=== PATIENT | male | born 1955 | race Caucasian/White ===

== ENCOUNTER 2022-02-11 10:42 | Day surgery (SDC) | payer OTHER ==
[~2022-02-11] VITALS: Ht 177.8 cm; Wt 86.8 kg
[~2022-02-11 10:42] MED LIST: CELE200 PO; FORTAMET; IBUP200; LEVE500 PO; LISI20 PO; PIOG45 PO; PRAV20 PO; TRAM50 PO
--- NOTE | 2022-02-11 11:28 | NUR ---
Ambulatory in Day Surgery History, Chart, Medications and Allergies reviewed before start of procedure. Lungs clear T/O to Auscultation. Patient confirms NPO status and agrees with scheduled surgery. Pre-Op teaching done. Pt verbalizes understanding. Patient States Post-Procedure ride home has been arranged.
--- NOTE | 2022-02-11 12:29 | NUR ---
02/11/22 1229 PERNELL SAUCEDO History, Chart, Medications and Allergies reviewed before start of procedure. Patient confirms NPO status and agrees with scheduled surgery. 3-LEAD EKG REVIEWED WITH PHYSICIAN PRIOR TO START OF PROCEDURE. MONITOR INTACT WITH CONTINUOUS PULSE OXIMETRY AND INTERMITTENT BP. PATIENT DETERMINED TO BE ASA APPROPRIATE FOR PROPOFOL SEDATION PRIOR TO START OF PROCEDURE BY DR. GREGORY. O2 VIA NASAL CANNULA.
--- NOTE | 2022-02-11 13:48 | NUR ---
1320- PT AWAKE, READY FOR DC HOME, DENIES NEED FOR ANYTHING TO DRINK RIGHT NOW. Discharge instructions reviewed with patient. Patient verbalizes understanding. Copy given to patient to take home. Discharged via wheelchair to private car for ride home.
== END 2022-02-11 13:30 | disposition home or self-care (01) ==
LOC: ORSCMMR 10:42 → ORD 12:30 → ORSCMMR 13:30
PROVIDERS: Student in an Organized Health Care Education/Training Program
PROC: 0DBH8ZX Excision of Cecum, Via Natural or Artificial Opening Endoscopic, Diagnostic (ICD-10-PCS; principal; 2022-02-11 12:30)
DX: D64.9 Anemia, unspecified (principal); D12.0 Benign neoplasm of cecum; K62.89 Other specified diseases of anus and rectum; K64.4 Residual hemorrhoidal skin tags; E11.9 Type 2 diabetes mellitus without complications; E78.5 Hyperlipidemia, unspecified; G40.909 Epilepsy, unspecified, not intractable, without status epilepticus; Z79.84 Long term (current) use of oral hypoglycemic drugs; Z79.899 Other long term (current) drug therapy
CPT/HCPCS: 82947; 88305; J2704; J7120

== ENCOUNTER 2025-10-05 15:08 | Emergency (ER) | payer OTHER ==
[~2025-10-05] VITALS: Ht 180.3 cm; Wt 86.2 kg
[2025-10-05 15:20] VITALS: BP 190/101
[2025-10-05] MEDS ORDERED: NS 1,000 ML IV SCH (17:05)
[2025-10-05] MEDS ORDERED: Morphine Sulfate 4 MG/1 ML Injection IV ONE (17:05)
[2025-10-05] MEDS ORDERED: Ondansetron HCl 2 MG / ML 2ML Vial IV ONE (17:05)
[2025-10-05 17:30] LABS: BASOPHILS ABSOLUTE AUTO 0.02 K/mm3 (0.00-0.23); BASOPHILS PERCENT AUTO 0 % (0-2); EOSINOPHILS ABSOLUTE AUTO 0.00 K/mm3 (0.00-0.68); EOSINOPHILS PERCENT AUTO 0 % (0-6); Hematocrit 39.5 % (37.0-53.0); Hemoglobin 13.2 g/dL (13.5-17.5); IMMATURE GRAN ABSOLUTE AUTO 0.02 K/mm3 (0.00-0.10); IMMATURE GRAN PERCENT AUTO 0 % (0-1); LYMPHOCYTES ABSOLUTE AUTO 0.63 K/mm3 (0.84-5.20); LYMPHOCYTES PERCENT AUTO 7 % (21-46); MONOCYTES ABSOLUTE AUTO 0.18 K/mm3 (0.16-1.47); MONOCYTES PERCENT AUTO 2 % (4-13); Mean Corpuscular HGB Conc 33.4 g/dL (31.5-36.5); Mean Corpuscular Volume 92 fL (80-100); NEUTROPHILS ABSOLUTE AUTO 8.50 K/mm3 (1.96-9.15); NEUTROPHILS PERCENT AUTO 91 % (41-73); NRBC ABSOLUTE 0.00 K/mm3 (0.00-0.02); NRBC Auto 0.0 /100 WBC (0.0-0.2); Platelet Count 244 K/mm3 (150-400); RDW Coefficient Variation 12.4 % (11.7-14.2); RDW Standard Deviation 41.9 fL (35.1-46.3)
[2025-10-05 17:53] LABS: Alanine Aminotransfer (ALT/SGP 26.0 U/L (12-78); Albumin, Blood 4.1 g/dL (3.4-5.0); Albumin/Globulin Ratio 1.0 (0.8-1.8); Anion Gap 11.0 mmol/L (3-11); Aspartate Aminotrans (AST/SGOT 16.0 U/L (12-37); Bilirubin, Total 0.5 mg/dL (0.1-1.0); Blood Urea Nitrogen 24.0 mg/dL (8-24); CO2, Blood 24.0 mmol/L (21-32); Calcium, Blood 9.7 mg/dL (8.5-10.1); Chloride, Blood 106.0 mmol/L (98-108); Creatinine, Blood 1.11 mg/dL (0.60-1.20); Globulin, Blood 4.0 g/dL (2.2-4.0); Glucose, Blood 152.0 mg/dL (70-99); Magnesium, Blood 1.8 mg/dL (1.6-2.4); Potassium, Blood 4.7 mmol/L (3.5-5.5); Sodium, Blood 136.0 mmol/L (136-145); Total Protein, Blood 8.1 g/dL (6.4-8.2)
[2025-10-05 18:51] LABS: Source, Urine Clean Catch
[2025-10-05 18:54] LABS: Bilirubin, Urine Neg (Neg); Color, Urine Yellow (P-Yellow); Glucose Qualitative, Urine Neg (Neg); Ketones, Urine 3+ (Neg); Leukocyte Esterase, Urine Neg (Neg); Protein, Urine 1+ (Neg); Specific Gravity, Urine 1.010 (1.003-1.022); Urobilinogen, Urine NORM (Normal)
[2025-10-05 19:01] LABS: Red Blood Cells, Urine 50-100 /hpf (0-2); White Blood Cells, Urine 0-2 /hpf (0-5)
[2025-10-05] MEDS ORDERED: ACET500 PO (19:08)
[2025-10-05] MEDS ORDERED: TAMS.4ER PO (19:08)
[2025-10-05] MEDS ORDERED: IBUP600 PO (19:08)
== END 2025-10-05 19:41 | disposition home or self-care (01) ==
LOC: ER 15:08
PROVIDERS: Emergency Medicine
DX: N13.2 Hydronephrosis with renal and ureteral calculous obstruction (principal); N28.1 Cyst of kidney, acquired; E11.9 Type 2 diabetes mellitus without complications; Z87.891 Personal history of nicotine dependence
CPT/HCPCS: 74177; 76870; 80053; 81001; 83690; 83735; 85025; 96361; 96374; 99284-25; A9270; J2405; J7030; Q9967